=== PATIENT | male | born 1950 | race Caucasian/White ===

== ENCOUNTER 2023-04-17 06:28 | Outpatient (CLI) | payer MEDICARE, OTHER, SELFPAY ==
--- OUTSIDE RECORDS SUMMARY | 2023-04-17 06:30 | XMS_ITS | Data Portability ---
Author Name Unknown Address [address] [place] [address] Phone [phone] Organization [facility] Address [address] [place] [address] Care Team Providers Care Sprinkler Inspector Name Role Phone ANGELA BENEDICT Primary Care Provider Assessment Encounter Date Assessment Date Assessment LastModified by Organization Details LastModified Time 11/02/2019 11/02/2019 68M with [id number] [place] 3+4=7 prostate cancer s/p RALP 08/03/19. [facility]. 1) Prostate cancer - f/u in 3 months with PSA 2) KAMRYN, resolved - [place] 3) Erectile dysfunction - V20/100 15 min telephone [email or web address] Not available 11/02/2019 15:58:07 02/08/2020 02/08/2020 69M with [id number] [place] 3+4=7 prostate cancer s/p RALP 08/03/19. [facility]. 1) Prostate cancer - f/u in 6 months with PSA 2) KAMRYN, resolved - [place] 3) Erectile dysfunction - V20/100 and RUIZ - discussed ICI, he defers for now [email or web address] Not available 02/08/2020 09:30:53 08/10/2020 08/10/2020 69M with [id number] [place] 3+4=7 prostate cancer s/p RALP 08/03/19. [facility]. 1) Prostate cancer - f/u in 6 months with PSA 2) KAMRYN, resolved - [place] 3) Erectile dysfunction - discussed ICI, refer to Dr Ventura in [place] for teaching [email or web address] Not available 08/10/2020 10:19:45 02/08/2021 02/08/2021 70M with [id number] [place] 3+4=7 prostate cancer s/p RALP 08/03/19. [facility]. 1) Prostate cancer - f/u in 6 months with PSA 2) KAMRYN, resolved 3) Erectile dysfunction - ICI per Dr Lorenzo allan Not available 02/08/2021 10:25:46 11/26/2022 11/26/2022 71M with [id number] [place] 3+4=7 prostate cancer s/p RALP 08/03/19. [facility]. 1) Prostate cancer - f/u in 6 months with PSA 2) KAMRYN, resolved 3) Erectile dysfunction - ICI per Dr Ventura; refilled today - check T level [email or web address] Not available 11/26/2022 09:40:48 Plan of Treatment Reminders Order Date Submit Date Provider Last Modified By Organization Details Last Modified Time Details Appointments ESTABL ISHED 10 2023 08:10A M Kris martínez MD, PHD Not available Not available Not available Lab PSA, serum or plasma 2022 023 [email or web address] [facility], [address] [place], [address], 11/26/2022 09:36:01 testos terone , total, serum 2022 023 [facility], [address], [place], [address], 11/26/2022 14:04:39 PSA, serum or plasma 2020 021 [email or web address] Not available 02/08/2021 10:13:43 PSA, serum or plasma 2020 021 [email or web address] Not available 08/10/2020 10:11:15 PSA, serum or plasma 2019 020 [email or web address] Not available 02/08/2020 09:19:45 Referral None record ed. Procedures None record ed. Surgeries None record ed. Imaging None record ed. Medication Orders silden afil (pulmo nary hypert ension ) 20 mg tablet 2019 020 [id number], [address], [place], [address], 11/26/2022 09:29:10 Patient TargetsNo targets recorded. Patient InstructionsNo instructions recorded. Reason for Referral None Reported. Results Created Date Observation Date Name Description Value Unit Range Abnormal Flag LastModifiedBy Organization Detail LastModifiedTime 08/10/2020 PSA, serum or plasm a PSA, Total <0.04n g/ml Not Available [facility] [address], [place], [address], 08/10/2020 09:34:12 02/08/2020 PSA, serum or plasm a PSA, Total <0.04 Not Available [facility] [address], [place], [address], 02/08/2020 09:19:16 02/09/20 21 02/08/2021 PSA, serum or plasm a PSA, Total <0.04 ng.mL Not Available [facility] [address], [place], [address], 02/08/2021 10:01:59 11/27/19 23 11/26/2022 TESTO STERO NE testosterone 563.85 NG/dL 175.00 -781.0 0 Not Available [facility] [address], [place], [address], 11/26/2022 18:49:57 11/27/19 23 11/26/2022 PSA, serum or plasm a PSA <0.04m g 0-4.0 Not Available [facility] [address], [place], [address], 11/26/2022 09:35:39 Result Notes None recorded. Problems Name Status Onset Date Resolution Date Notes Provider Name and Address Organization Details Recorded Time Malignant tumor of prostate Active 02/09/20 21 Gabrielle De Jesus jed, [facility] 02/08/2021 10:01:07 Erectile dysfunction following radical prostatectomy Active 11/27/19 23 Kris yates MD, PHD [address], [place], [address], [facility] 11/26/2022 09:04:07 Problem Notes None recorded. Procedures Surgical History Date Name Laterality Status Provider Name and Address Organization Details Recorded Time 02/09/20 21 Blood Draw/PERSONNEL ASSOCIATE/PSA RESULTS completed Gabrielle Neal adkins, [facility] 02/08/2021 10:01:49 08/11/19 21 Blood Draw/PERSONNEL ASSOCIATE/PSA RESULTS completed Maki Okeefe [facility] 08/10/2020 10:11:53 02/08/20 20 Blood Draw/PERSONNEL ASSOCIATE/PSA RESULTS completed Maki Okeefe [facility] 02/08/2020 09:19:13 05/05/19 17 colonoscopy completed Rupinder Arevalo [facility] 12/20/2020 09:52:54 Vasectomy completed Gabrielle Alexander [facility] 11/02/2019 14:55:33 [facility] 14:55:56 Imaging Results None recorded. Procedure Notes None recorded. Medical Equipment None Reported. Allergies Allergen ID Allergen Name Allergen Category Reaction Reaction Severity Criticality Documentation Date Start Date Code Code System Note Provider Name and Address Organization Details Recorded Time 736823 Medicinal product containin g penicilli n and acting as antibacte rial agent (product) medicatio n itching Not available Not available 09/15/20192019 43194 05 SNOMED Not Available [facility] 0 00:42:12 Medications Name Sig Start Date Stop Date Status Note LastModified by Organization Details LastModified Time compounded medication Inject 10 units (0.1 mL) intracave rnosally PRN sexual activity. Titrate by 5 units (0.5 mL) until desired response 2022 active Not Available Not Available Not Avai lable compounded medication Inject 10 units (0.1 mL) intracave rnosally PRN sexual activity. Titrate by 5 units (0.5 mL) until desired response 2022 active Not Available Not Available Not Avai lable Trimix 30 papaverine/ 1 phentolamin e/10 PGE-1 inject 10 units intracave rnosal as needed. Titrate by 5 units until desired response. 11/26 completed Not Available Not Available Not Available compounded medication Inject 10 units (0.1 mL) intracave rnosally PRN sexual activity. Titrate by 5 units (0.5 mL) until desired response. 11/26 completed Not Available Not Available Not Available atorvastati n 20 mg tablet 11/26 completed Not Available Not Available Not Available azithromyci n 250 mg tablet 11/01 completed Not Available Not Available Not Available ciprofloxac in 500 mg tablet 11/01 completed Not Available Not Available Not Available doxycycline monohydrate 50 mg capsule TAKE 1 CAPSULE BY MOUTH TWICE DAILY WITH NON-DAIRY FOOD & WATER.SUP PLEMENT WITH A PROBIOTIC . 11/26 completed Not Available Not Available Not Available DOK 100 mg capsule 11/01 completed Not Available Not Available Not Available meclizine 25 mg tablet 11/26 completed Not Available Not Available Not Available dexamethaso ne 4 mg tablet 11/26 completed Not Available Not Available Not Available Ventolin HFA 90 mcg/actuati on aerosol inhaler 11/01 completed Not Available Not Available Not Available oxycodone 5 mg tablet 11/01 completed Not Available Not Available Not Available tadalafil 5 mg tablet Take 1 tablet as needed by oral route. 11/26 completed Not Available Not Available Not Available sildenafil (pulmonary hypertensio n) 20 mg tablet Take 1 tab (20 mg) once daily. Once per week take 5 tabs (100 mg ) 30-60 minutes prior to sexual activity. 11/26 completed Not Available Not Available Not Available magnesium active Not Available Not Adriana ilable Not Available Vitamin D3 active Not Available Not Av ailable Not Available Fluzone High-Dose Quad (PF) 240 mcg/0.7 mL IM syringe [facility] 11/26 completed Not Available Not Available Not Available Vitals Date Recorded Body weight Body mass index (BMI) Body height Provider Name and Address Organization Details Last Updated DateTime 11/26/2022 92966.74 g 26.6 kg/m2 167.64 cm Kris aden MD, PHD [address] [place] [address],[facility] [address], [place], [address] 11/26/2022 09:27:15 Date Recorded Body height Body mass index (BMI) Body weight Provider Name and Address Organization Details Last Updated DateTime 02/08/2020 167.64 cm 26.6 kg/m2 38660.74 g Maki adkins [facility] 02/08/2020 09:04:58 Date Recorded Body height Body mass index (BMI) Body weight Provider Name and Address Organization Details Last Updated DateTime 08/10/2020 167.64 cm 25.8 kg/m2 26572.78 g Kris aden MD, PHD [address] [place] [address], [phone] 08/10/2020 09:58:14 Date Recorded Body height Body mass index (BMI) Body weight Provider Name and Address Organization Details Last Updated DateTime 11/02/2019 167.64 cm 27.4 kg/m2 70087.7 g Gabrielle adkins [facility] 11/02/2019 14:46:01 Date Recorded Body height Body mass index (BMI) Body weight Provider Name and Address Organization Details Last Updated DateTime 02/08/2021 167.64 cm 25 kg/m2 38889.82 g Gabrielle adkins [facility] 02/08/2021 10:00:21 Social History Question Answer Notes LastModified by Organizat ion Details LastModified Time Tobacco Smoking Status Never Smoker Gabrielle adkins [facility] 11/02/2019 14:48:34 What Is Your Level Of Alcohol Consumption? Moderate Information not available 08/10/2020 What Is Your Level Of Caffeine Consumption? Moderate Information not available 08/10/2020 Do You Or Have You Ever Used E-cigarettes Or Vape? Never Used Electronic Cigarettes [email or web address] Information not available 11/02/2019 Recreational Drug Use No Information not available 08/10/2020 Marital Status Informa tion not available 08/10/2020 What Was The Date Of Your Most Recent Tobacco Screening? 11/26/2022 Information not available 11/26/2022 Sex: Male Functional Status None recorded. Mental Status None recorded. Family History Relationship Description Onset Age of this Age Resolved Age Notes Father Family history of cancer skin Sister Family history of br east cancer Sister Family history of br east cancer Sister Family history of ca ncer of colon Paternal Uncle Family history of ca ncer of colon Medical History Condition Response Sexually Transmitted Infection N Diabetes N Bleeding Disorder N High Blood Pressure N Kidney Stones N Cancer Y Lung Disease N Depression N High Cholesterol N GERD/Acid Reflux N Heart Disease N Immunizations Vaccine Type Date Status Provider Name and Address Organization Details Recorded Time pneumococcal polysaccharide PPV23 06/21/2018 completed Kris Paredes MD, PHD [address] [place] [address],[address], [address], [facility] 11/26/2022 09:27:20 zoster recombinant 06/15/2020 completed Kris Paredes MD, PHD [address] [place] [address], [phone], [facility] 11/26/2022 09:27:19 zoster recombinant 02/17/2020 completed Kris Paredes MD, PHD [address] [place] [address],[address], [address], [facility] 11/26/2022 09:27:19 influenza, high-dose, quadrivalent 01/20/2022 completed Kris Paredes MD, PHD [address] [place] [address],[address], [address], [facility] 11/26/2022 09:27:19 Influenza vaccine, quadrivalent, adjuvanted 04/22/2021 completed Kris Paredes MD, PHD [address] [place] [address],[address], [address], [facility] 11/26/2022 09:27:19 COVID-19, mRNA, LNP-S, PF, 30 mcg/0.3 mL dose 10/25/2020 completed Kris Paredes MD, PHD [address] [place] [address], [phone], [facility] 11/26/2022 09:27:19 COVID-19, mRNA, LNP-S, PF, 30 mcg/0.3 mL dose 11/19/2020 completed Kris Paredes MD, PHD [address] [place] [address], [phone], [facility] 11/26/2022 09:27:19 Tdap 05/17/2008 completed Kris Paredes MD, PHD [address] [place] [address], [phone], [facility] 11/26/2022 09:27:20 Pneumococcal conjugate PCV 13 10/09/2016 completed Kris Paredes MD, PHD [address] [place] [address], [phone], [facility] 11/26/2022 09:27:20 Influenza, high dose seasonal 04/02/2017 completed Kris Paredes MD, PHD [address] [place] [address], [address], [facility] 11/26/2022 09:27:20 Influenza, high dose seasonal 03/06/2016 completed Kris Paredes MD, PHD [address] [place] [address], [phone], [facility] 11/26/2022 09:27:20 Influenza, high dose seasonal 03/25/2019 completed Kris Paredes MD, PHD [address] [place] [address], [phone], [facility] 11/26/2022 09:27:20 Td (adult), 5 Lf tetanus toxoid, preservative free, adsorbed 12/09/2004 completed Kris Paredes MD, PHD [address] [place] [address],[address], [address], [facility] 11/26/2022 09:27:20 influenza, injectable, quadrivalent, preservative free 12/21/2019 completed Kris Paredes MD, PHD [address] [address], [place], [address], [facility] 11/26/2022 09:27:20 Past Encounters Encounter ID Performer Location Encounter Start Date Encounter Closed Date Diagnosis/Indication [id number] Kris Paredes MD, PHD [facility] [address] [place] [address] 11/02/2019 14:43:32 11/02/2019 18:27:23 Erectile dysfunction following radical prostatectomy Malignant tumor of prostate [id number] Kris Paredes MD, PHD [facility] [address] [place] [address] 02/08/2020 08:42:54 02/08/2020 13:27:23 Erectile dysfunction following radical prostatectomy Malignant tumor of prostate [id number] Kris Paredes MD, PHD [facility] [address] [place] [address] 08/10/2020 09:44:39 08/13/2020 12:36:27 Erectile dysfunction following radical prostatectomy Malignant tumor of prostate [id number] Kris Paredes MD, PHD [facility] [address] [place] [address] 02/08/2021 09:41:45 02/11/2021 12:37:47 Malignant tumor of prostate Erectile dysfunction following radical prostatectomy [id number] Kris Paredes MD, PHD [facility] [address] [place] [address] 11/26/2022 09:01:11 12/05/2022 15:50:50 Malignant tumor of prostate Erectile dysfunction following radical prostatectomy Health Concerns Section Related Observation LastModified by Organization Detai ls LastModified Time None Recorded Concern Status LastModified by Organization Details LastModified Time None Recorded Advance Directives Directive None Recorded Payers Encounter Date Sequence Insurance Name Policy Number Policy Willis Covered Member ID Willis Member ID Guarantor Name 11/26/2022 1 [employer] Bubba Alonso [id number] Bubba Alonso 11/26/2022 2 [place] [employer] [facility] Bubba Alonso [id number] Bubba Alonso 02/08/[address] [facility] [id number] Bubba Alonso [id number] Bubba Alonso 08/10/[address] [facility] [id number] Bubba Alonso [id number] Bubba Alonso 02/08/[address] [facility] [id number] Bubba Alonso [id number] 001 Bubba Alonso 11/02/[address] [facility] [id number] Bubba Alonso [id number] 001 Bubba Alonso Notes Date Note Type Note Provider Name and Address Organization Details Recorded Time 11/02/2019 text/html HPI Notes: 68M w ith [id number] [place] 3+4=7 prostate cancer s/p RALP 08/03/19. (+SMS, -LVI, 0/3 LN) Overall doing very well. Denies pain. Voiding well with strong stream. Denies incontinence. Stopped using pads ~ 1 month ago. Some soreness in perineum. No hematuria or leg swelling. Tried sildenafil 80 mg x 1 without response. Pre-op EF: 06/01 UF: 04/03 Date total continence: 10/02/19 EF: 07/02 PSA Results 09/23/19 <0.03 This visit was conducted by telephone due to the COVID-19 crisis. Prior to conducting our telephone visit, the patient was apprised of the risks, benefits and alternatives to telephone visits including but not limited to poor audio quality, interrupted visits due to technological limitations, delays in medical evaluation and treatment due to deficiencies or failures of equipment, failure of security protocols resulting in a breach of privacy of personal medical information and a lack of access to complete medical records resulting in not fully informed decisions. Also, because of the COVID-19 pandemic, it was not possible for the patient to sign the privacy regulations, HIPAA release and assignment of benefits forms. The patient was given the opportunity to ask questions about these policies and gave verbal acknowledgement and approval of these policies as well as to hold this meeting by telephone. Lastly, the patient agreed to allowing their medication history to be pulled from a national pharmacy database to facilitate and coordinate their care. Kris Paredes MD, PHD [address], [place], [address], [facility] 11/02/2019 15:58:42 02/08/2020 text/html HPI Notes: 69M w ith [id number] [place] 3+4=7 prostate cancer s/p RALP 08/03/19. (+SMS, -LVI, 0/3 LN) Overall doing very well. Denies pain. Voiding well with strong stream. No pain. Tried sildenafil 100 mg x 3 without response. Got headache occasionally. Uses pump some times. Pre-op EF: 3/5 UF: 04/03 Date total continence: 10/02/19 EF: 4/ PSA Results 09/23/19 <0.03 02/08/20 <0.04 Kris Paredes MD, PHD [address] [place] [address], [address], [facility] 02/08/2020 09:32:06 08/10/2020 text/html HPI Notes: 69M w ith [id number] [place] 3+4=7 prostate cancer s/p RALP 08/03/19. (+SMS, -LVI, 0/3 LN) Overall doing very well. Denies pain. Voiding well with strong stream. No pain. Was in [facility] last month with COVID. Now feeling better. Using tadalafil, previously used sildenafil but got upset stomach. Uses pump some times but doesn't like. Occasional unaided 50-75% erection. Pre-op EF: 3/5 UF: 04/03 Date total continence: 10/02/19 EF: 3/ PSA Results 09/23/19 <0.03 02/08/20 <0.04 08/10/20 <0.04 Kris Paredes MD, PHD [address] [place] [address],[address], [address], [facility] 08/10/2020 10:20:35 02/08/2021 text/html HPI Notes: 70M w ith [id number] [place] 3+4=7 prostate cancer s/p RALP 08/03/19. (+SMS, -LVI, 0/3 LN) Overall doing very well. Denies pain. Voiding well with strong stream. No pain. Using tadalafil, previously used sildenafil but got upset stomach. Tried ICI a few times, moderate results, titrating dose. Occasional unaided 50-75% erection. Pre-op EF: 06/01 UF: 04/03 Date total continence: 10/02/19 EF: 06/01 PSA Results 09/23/19 <0.03 02/08/20 <0.04 08/10/20 <0.04 02/08/21 <0.04 Kris Paredes MD, PHD [address], [address], [facility] 02/08/2021 10:26:46 11/26/2022 text/html HPI Notes: 71M w ith [id number] [place] 3+4=7 prostate cancer s/p RALP 08/03/19. (+SMS, -LVI, 0/3 LN) Overall doing very well. Denies pain. Voiding well with strong stream. No pain. Using tadalafil, previously used sildenafil but got upset stomach. Tried ICI a few times, moderate results, titrating dose. Hasn't used for a while. Didn't tolerate PDE5i due to dyspepsia. Pre-op EF: 06/01 UF: 04/03 Date total continence: 10/02/19 EF: 06/01 PSA Results 09/23/19 <0.03 02/08/20 <0.04 08/10/20 <0.04 02/08/21 <0.04 11/26/22: <0.04 Kris Paredes MD, PHD [address] [address], [place], [address], [facility] 11/26/2022 09:41:14
--- OUTSIDE RECORDS SUMMARY | 2023-04-17 06:30 | XMS_ITS | Clinical Summary ---
Author Name Unknown Organization [facility] Address [place], [place] [address] Care Team Providers Care Draw Frame Tender Name Role Phone José Miguel Hobson MD Primary Care Provider [phone] Allergies Active Allergy Reactions Criticality Noted Date Comments Penicillins Rash 05/17/2008 Gets rash between fingers -##No similarities in side chains, very low to no risk of cross-sensitivity to ANCEF. ANW Antimicrobial Stewardship Team 12/2018 Medications Medication Sig Dispensed Refills Start Date End Date Status cholecalciferol, Vitamin D3, (VITAMIN D-3) 5,000 unit tab tablet Take by mouth once daily. 0 02/23/2019 Active MAGNESIUM ORAL Take 1 tablet by mouth once daily if needed. For leg cramping 0 Active ibuprofen (ADVIL ORAL) Take by mouth once daily if needed. 0 Active atorvastatin (LIPITOR) 20 mg tabletIndications:Othe r hyperlipidemia 1 tablet at bedtime every other day 45 Tablet 3 09/26/2021 Active Active Problems Problem Noted Date Diagnosed Date Other hyperlipidemia 06/21/2021 Adenocarcinoma of prostate 06/08/2019 Overview: Marion's Grade 3 + 4 (7/10) GERD (gastroesophageal reflux disease) 2 Overview: EGD 01/2012 reflux Family history of malignant neoplasm of gastrointestinal tract 03/04/2010 Colon polyp 03/04/2010 Overview: Colonoscopy 04/2016 normal repeat in 5 years Encounters Date Type Department Care Team Description 03/16/2023 Telephone [facility] [address] [place] [address] José Miguel Hobson MD Questions from Last 3 Months Immunizations Name Administration Dates Next Due COVID-19 vaccine ([employer] NTech 30mcg/0.3mL) PF, MDV 11/19/2020,10/25/2020 Influenza, High-dose Inactivated 03/25/2019,06/2017,03/06/2016 Influenza, IIV4 12/21/2019 Influenza, Inactivated AIIV4 (Age 65+ Years) Preserv Free 04/22/2021 Pneumococcal Poly,23-Valent (Pneumovax) 06/22/19 19 Pneumococcal conj 13-Valent (Prevnar 13) 017 Td, Preservative Free (age >= 7 Years) 5 Tdap 05/17/2008 Zoster (Shingrix-RZV, recombinant) 06/15/2020, Family History Medical History Relation Name Comments Other Brother 2 Nilesh history of spin al meningitis w memory loss Stroke Father at age 64.5 years (drinker and smoker) Hypertension Mother Cancer-breast Sister 1 Aby at 60 of metastatic breast cancer Cancer-colon Sister 1 Aby Cancer-breast Sister 2 Brianna Cancer Sister 3 Sheba of stomach cancer at 57 Anesthesia Problem No Family History Relation Name Status Comments Brother 1 Eber Alive Brother 2 Nilesh Alive Father Mother Sister 1 Aby Sister 2 Brianna Sister 3 Sheba Social History Tobacco Use Types Packs/Day Years Used Date Smoking Tobacco: Never Smokeless Tobacco: Never Tobacco Cessation:Counseling Given: Yes Alcohol Use Standard Drinks/Week Comments Yes 2 (1 standard drink = 0.6 oz pur e alcohol) 1-2 drinks a week PHQ-2 Answer Date Recorded PHQ-2 TOTAL SCORE 0 04/22/2021 Social Connections Answer Date Recorded Frequency of Communication with Friends and Fami ly Not on file 03/30/2021 Financial Resource Strain Answer Date R ecorded Difficulty of Paying Living Expenses Not on file 03/30/2021 Difficulty of Paying Living Expenses Not on file 03/30/2021 Sex and Gender Information Value Date Recorded Sex Assigned at Not on file Gender Identity Not on file Sexual Orientation Not on file Obstetrics History Last Filed Vital Signs Vital Sign Reading Time Taken Comments Blood Pressure 166/80 06/26/2021 1:42 PM CDT Pulse 61 06/26/2021 1:42 PM CDT Temperature 36.6 ??C (97.9 ??F) 04/22/2021 1 2:49 PM RELIABILITY MANAGER Respiratory Rate 16 09/26/2020 3:29 PM CDT Oxygen Saturation 98% 06/26/2021 1:42 PM CDT Inhaled Oxygen Concentration - - Weight 75.6 kg (166 lb 11.2 oz) 06/26/2021 1:42 PM CDT Height 166.5 cm (5' 5.55) 06/21/2021 8:00 AM CD T Body Mass Index 27.28 06/21/2021 8:00 AM CDT Plan of Treatment Health Maintenance Due Date Last Done Comments Tetanus booster 05/17/2018 05/17/2008, 12/09/2004 Colonoscopy through age 75 05/05/202105/05, 05/05/2016, 05/05/2016, Additional history exists Depression screening for age 12+ 04/22/2022 04/22/2021, 04/22/2021, 01/01/2019, Additional history exists Medicare Wellness for age 65+ 04/22/2022, 12/29/2018, 10/09/2016, Additional history exists BMI (ht and wt on same day) for age 18+ 06/21/2022 06/21/2021, 04/22/2021, 08/01/2019, Additional history exists COVID-19 vaccine series ( season) 2022 11/19/2020, 10/25/2020 Influenza for age 65+ 11/28/2022 04/22/2021 , 12/21/2019, 03/25/2019, Additional history exists Lipids for age 45-75 2026 2021, 09/24/2021, 04/22/2021, Additional history exists Tdap Completed 05/17/2008 Pneumococcal series for age 65+ Completed 9, 10/09/2016 Zoster (shingles) series for age 50+ Completed 06/15/2020, 02/17/2020 Hepatitis C screening for ag e 18-79 Completed 04/22/2021 Advance Directives Latest Code Status on File Code Status Date Activated Date Inactivated Comments Full Code 08/03/2019 6:00 AM 08/04/2019 1:02 PM Code Status History Code Status Date Activated Date Inactivated Comments Full Code 04/19/2019 5:52 AM 08/03/2019 5:52 AM Care Teams Draw Frame Tender Relationship Specialty Start Date End Date José Miguel Hobson MD [address] [place] [address] PCP - General 10/16/06
--- NOTE | 2023-04-17 08:15 | P.ANES_ITS ---
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
--- NOTE | 2023-04-17 09:04 | W.ANESCHARGE ---
Anesthesia Charges Start Date/Time Anesthesia Start Date: 04/17/23 Anesthesia Start Time: 07:16 Stop Date/Time Anesthesia Stop Date: 04/17/23 Anesthesia Stop Time: 07:39 Summary Extremes of Age - Over 70 or under 1: MDA
== END 2023-04-17 06:29 | disposition home or self-care (01) ==
LOC: OP CLINIC 06:29
PROVIDERS: PCP Family Medicine; Visit Provider Internal Medicine
DX: Z12.11 Encounter for screening for malignant neoplasm of colon (principal); K62.1 Rectal polyp; Z80.0 Family history of malignant neoplasm of digestive organs
CPT/HCPCS: 00811; 45380; 88305; 99100; J2704